=== PATIENT | male | born 1960 | race Caucasian/White ===

== ENCOUNTER 2018-09-06 13:30 | Inpatient (IN) | payer OTHER ==
[~2018-09-06 13:30] MED LIST: Aspirin Chewable 81 MG TAB ONE; Heparin 10,000 UNITS/ 10 ML VIAL ONE; Iopamidol 370 76% 100 ML VIAL ONE; Iopamidol 370 76% 50 ML VIAL FS ONE; Nitroglycerin 4.9 GM Bottle ONE
[2018-09-06 13:55] LABS: #Basophils 0.1 thou/uL (0.0-0.2); #Eosinphils 0.1 thou/uL (0.0-0.7); #Lymphocytes 2.3 thou/uL (1.20-3.40); #Monocytes 0.8 thou/uL (0.11-0.59); #Neutrophils 11.4 thou/uL (1.40-6.50); %Basophils 0.4 % (0.0-1.0); %Eosinophils 0.7 % (0.0-10.0); %Lymphocytes 15.9 % (21.0-51.0); %Monocytes 5.4 % (0.0-10.0); %Neutrophils 77.7 % (42.0-75.0); Hemoglobin 17.2 g/dL (14.0-18.0); Mean Corpuscular HGB CONC 32.9 g/dL (32.0-36.0); Mean Corpuscular Hemoglobin 30.5 pg (27.0-31.0); Mean Corpuscular Volume 92.7 fL (78.0-98.0); Mean Platelet Volume 7.2 fL (7.4-10.4); Platelet Count 252 thou/uL (130-400); RBC Distribution Width 12.4 % (11.5-14.5); Red Blood Cell (RBC) Count 5.64 mill/uL (4.70-6.10); White Blood Cell (WBC) Count 14.7 thou/uL (4.8-10.8)
--- NOTE | 2018-09-06 14:01 | RAD ---
EXAM: Portable chest PROVIDED CLINICAL HISTORY: Chest pain COMPARISON: None FINDINGS: Heart size appears prominent, which may be least partially on the basis of portable technique. No foc al consolidation, pleural fluid or pneumothorax evident. IMPRESSION: No evidence for an acute cardiopulmonary process.
[2018-09-06 14:04] LABS: INR-International Normal Ratio 0.9; Prothrombin Time 12.6 SEC (12.0-14.7)
[2018-09-06 14:06] LABS: PTT 22.6 SEC (22.9-36.1)
[2018-09-06 14:18] LABS: ALT (SGPT) 38 U/L (8-55); AST (SGOT) 40 U/L (5-34); Albumin 4.5 g/dL (3.5-5.0); Alkaline Phosphatase 78 U/L (40-150); Anion Gap 17 mmol/L (10-20); BUN (Urea Nitrogen) 21 mg/dL (8.4-25.7); CK (CPK) 51 U/L (30-200); Calc. Creatinine Clearance 0 mL/min (70-130); Calcium 9.6 mg/dL (7.8-10.44); Carbon Dioxide 21 mmol/L (22-29); Chloride 106 mmol/L (98-107); Estimated GFR-MDRD 57; Globulin 3.7 g/dL (2.4-3.5); Glucose 122 mg/dL (70-105); Lipase 22 U/L (8-78); Potassium 5.1 mmol/L (3.5-5.1); Protein, Total 8.2 g/dL (6.0-8.3); Sodium 139 mmol/L (136-145)
[2018-09-06] MEDS ORDERED: Atropine Sulfate 1 mg/10 ml Syringe ONE (14:30)
[2018-09-06] MEDS ORDERED: Heparin 10,000 UNITS/1 ML VIAL ONE (14:30)
[2018-09-06] MEDS ORDERED: Morphine 2 MG/ML SYRINGE ONE (14:32)
[2018-09-06 14:38] LABS: CKMB 2.6 ng/mL (0-6.6)
[2018-09-06] MEDS ORDERED: Nitroglycerin 100MG/250ML BOT 250 ML ONE (14:57)
[2018-09-06 15:47] VITALS: BMI 30.8
[2018-09-06] MEDS ORDERED: Heparin 25,000 units/D5W 500 ML IV SCH (16:30)
[2018-09-06] MEDS ORDERED: Heparin 10,000 UNITS/ 10 ML VIAL SLOW IVP SCH (16:30)
[2018-09-06] MEDS ORDERED: Morphine 4 MG/ML VIAL SLOW IVP PRN (18:13)
[2018-09-06] MEDS ORDERED: Zolpidem Tartrate 5 MG TAB PO PRN (18:13)
[2018-09-06] MEDS ORDERED: Acetaminophen/Codeine 30-300mg Tablet PO PRN ×2 (18:13)
[2018-09-06] MEDS ORDERED: Nitroglycerin 0.4 MG TAB (25 Tab Bottle) SL PRN (18:13)
[2018-09-06 18:23] LABS: PTT 128.2 SEC (22.9-36.1)
[2018-09-06] MEDS ORDERED: Morphine 2 MG/ML SYRINGE SLOW IVP PRN (18:30)
[2018-09-06 19:55] LABS: Troponin I 160.895 ng/mL (< 0.028)
[2018-09-06] MEDS: TICAGRELOR 90 MG TABLET PO SCH (20:47)
[2018-09-06] MEDS: Carvedilol 3.125 MG TAB PO SCH (20:47)
[2018-09-06] MEDS: Atorvastatin Calcium 40 MG TAB PO SCH (20:47)
--- NOTE | 2018-09-06 21:04 | HP ---
INDICATION FOR ADMISSION: A 57-year-old gentleman who suffered an acute anterior myocardial infarction. HISTORY OF PRESENT ILLNESS: This is a very pleasant gentleman who is actually from [place] was down here visiting his place in [place] and was working on the yard. Around noon time, he started having chest pain, heavy pressure with diaphoresis, shortness of breath and his pain was 8/10. His rode him to the emergency room. He at this time has been given aspirin, nitroglycerin and heparin. He continues to have EKG changes and chest pain. He has a history of hypertension, but no other risk factors for coronary artery disease. He has had no previous cardiac history that he is aware of. He had a stress test many years ago, but none recently. PAST MEDICAL HISTORY: Unremarkable except for right arm fracture as a child. SOCIAL HISTORY: He is . He has 3 children. No heart disease. He has no alcohol or tobacco abuse. He continues to work, mainly with doing computer work. FAMILY HISTORY: Noncontributory except that this father had carotid artery disease. ALLERGIES: NONE. PRESENT MEDICATIONS: None. REVIEW OF SYSTEMS: A 12-point review of systems completely unremarkable. There was no other history of present illness. PHYSICAL EXAMINATION: GENERAL: Reveals a well-developed, well-nourished, very pleasant gentleman. VITAL SIGNS: Blood pressure 144/96, heart rate is 65 and regular. HEENT: Shows the head to be normocephalic and atraumatic. CARDIOVASCULAR: Carotid pulses present. I did not hear any bruits. Cardiovascular exam reveals a regular rhythm at this time with no significant murmurs heaves, thrills, bruits or rubs. CHEST: Clear to auscultation. ABDOMEN: Obese with positive bowel sounds. No organomegaly or masses noted. Femoral pulses are present. EXTREMITIES: No clubbing, cyanosis, edema. Pedal pulses are present. NEUROLOGIC: The patient appears to be intact. SKIN: His skin is warm and dry at this time. LABORATORY DATA: EKG shows an acute anterior myocardial infarction. Laboratory data is still pending, but we will schedule the patient for emergent cardiac catheterization. I have explained to him the procedure, the risks to include bleeding, infection, possible myocardial infarction, CVA, renal insufficiency, allergic contrast reaction, and even the possibility of . He understands and agrees to proceed and plan for cardiac catheterization in an emergent basis in this otherwise healthy gentleman who has suffered an anterior myocardial infarction. Job ID: [id number]
[2018-09-07 03:39] LABS: #Eosinphils 0.1 thou/uL (0.0-0.7); #Lymphocytes 2.3 thou/uL (1.20-3.40); #Monocytes 0.9 thou/uL (0.11-0.59); #Neutrophils 10.4 thou/uL (1.40-6.50); %Basophils 0.2 % (0.0-1.0); %Eosinophils 0.5 % (0.0-10.0); %Lymphocytes 16.7 % (21.0-51.0); %Monocytes 6.7 % (0.0-10.0); %Neutrophils 75.9 % (42.0-75.0); Hemoglobin 15.4 g/dL (14.0-18.0); Mean Corpuscular HGB CONC 33.2 g/dL (32.0-36.0); Mean Corpuscular Hemoglobin 30.8 pg (27.0-31.0); Mean Corpuscular Volume 92.7 fL (78.0-98.0); Mean Platelet Volume 7.1 fL (7.4-10.4); Platelet Count 236 thou/uL (130-400); RBC Distribution Width 12.6 % (11.5-14.5); Red Blood Cell (RBC) Count 5.01 mill/uL (4.70-6.10); White Blood Cell (WBC) Count 13.8 thou/uL (4.8-10.8)
[2018-09-07 03:53] LABS: Anion Gap 12 mmol/L (10-20); BUN (Urea Nitrogen) 15 mg/dL (8.4-25.7); Calc. Creatinine Clearance 124 mL/min (70-130); Calcium 8.9 mg/dL (7.8-10.44); Carbon Dioxide 24 mmol/L (22-29); Cardiac Risk 3.3 (Less than 4.5); Chloride 105 mmol/L (98-107); Cholesterol 187 mg/dl (< 200 Desired); Estimated GFR-MDRD 80; Glucose 117 mg/dL (70-105); HDL Cholesterol 56 mg/dL (>60 Neg Risk); LDL Cholesterol, Calculated 105 mg/dL; Potassium 3.9 mmol/L (3.5-5.1); Sodium 137 mmol/L (136-145); Triglycerides 130 mg/dL (Less than 150)
[2018-09-07] MEDS: Carvedilol 3.125 MG TAB PO SCH ×2 (08:18→21:21)
[2018-09-07] MEDS: Aspirin Chewable 81 MG TAB PO SCH (08:18)
[2018-09-07] MEDS: Lisinopril 2.5 MG TAB PO SCH (08:18)
[2018-09-07] MEDS ORDERED: Lisinopril 2.5 MG TAB PO SCH (09:00)
[2018-09-07] MEDS: TICAGRELOR 90 MG TABLET PO SCH ×2 (10:52→21:22)
--- NOTE | 2018-09-07 11:20 | PDOC.CTH ---
Cardiology Progress Note - Subjective The pt seen and examined. No overnight events. No cardiac complaints. He still has A-line in Rt Fem with 2+ pulses to RLE. - Objective Vital Signs Temp Pulse Ox 09/07/18 09:00 98.0 F 09/07/18 08:00 98 09/07/18 04:00 98.0 F 09/07/18 00:00 98.6 F Weight 233 lb 14.567 oz 09/06/18 09/07/18 09/08/18 06:59 06:59 06:59 Intake Total 1415 240 Output Total 1600 0 Balance -185 240 - Physical Examination General/Neuro: alert & oriented x3 Neck: no JVD present Lungs: CTA Heart: RRR Abdomen: soft Extremities: other: (No edema; no hematoma or drainage to Rt fem) - Telemetry Telemetry Rhythm: SR - Labs Result Diagrams: 09/07/18 03:20 09/07/18 03:20 Troponin/CKMB CK-MB (CK-2) 2.6 ng/mL (0-6.6) 09/06/18 13:41 Troponin I 107.350 ng/mL (< 0.028) H* 09/07/18 00:00 - Assessment/Plan 1. S/o LHC with MARTA stent to LAD on 09/06/2018 - stable; Trop trend down. On Coreg 3.125mg 1/2 tab BID, Lisinopril 2.5mg qd, ASA 81mg qd, and Brilinta BID. \ MAR reviewed Pt. seen and eval. by me. He has no complaints. No chest pain. RRR. Chest clear. I agree witrh the A/P by the GRAPHITE GRINDER. Echo: mid-distal ant. wall akinesis,septal akinesis. apical akinesis. EF 30-35% . This may indicate myocardial stunning and hopefully the EF will improve. In the interim he qualifies for a Life-Vest on d/c. Repeat echo in 1 month is advisable. If no improvement in the EF in 45-90 days then an AICD would be advisable . gjm Review of Systems - Review of Systems Constitutional: reports: no symptoms reported EENTM: reports: no symptoms reported Respiratory: reports: no symptoms reported Cardiac (ROS): reports: no symptoms reported ABD/GI: reports: no symptoms reported : reports: no symptoms reported Musculoskeletal: reports: no symptoms reported Skin: reports: no symptoms reported
[2018-09-07] MEDS: Atorvastatin Calcium 40 MG TAB PO SCH (21:23)
[2018-09-08] MEDS: Carvedilol 3.125 MG TAB PO SCH ×2 (10:23→20:31)
[2018-09-08] MEDS: Aspirin Chewable 81 MG TAB PO SCH (10:27)
[2018-09-08] MEDS: Lisinopril 2.5 MG TAB PO SCH (10:27)
[2018-09-08] MEDS: TICAGRELOR 90 MG TABLET PO SCH ×2 (10:28→20:31)
--- NOTE | 2018-09-08 13:56 | PDOC.CTH ---
Cardiology Progress Note - Subjective The pt seen and examined. No overnight events. No cardiac complaints. - Objective Vital Signs Temp Pulse Resp BP BP Pulse Ox 09/08/18 10:27 76 112/79 09/08/18 08:00 97.4 F L 76 14 112/79 99 09/08/18 07:00 96 09/08/18 04:52 97.5 F L 76 12 105/67 100 Weight 222 lb 1 oz 09/07/18 09/08/18 09/09/18 06:59 06:59 06:59 Intake Total 1415 1200 Output Total 1600 300 Balance -185 900 - Physical Examination General/Neuro: alert & oriented x3 Neck: no JVD present Lungs: CTA Heart: RRR Abdomen: soft Extremities: other: (no edema) - Telemetry Telemetry Rhythm: SR - Labs Result Diagrams: 09/07/18 03:20 09/07/18 03:20 Troponin/CKMB CK-MB (CK-2) 2.6 ng/mL (0-6.6) 09/06/18 13:41 Troponin I 107.350 ng/mL (< 0.028) H* 09/07/18 00:00 - Assessment/Plan 1. S/o C with MARTA stent to LAD on 09/06/2018 - stable; Trop trend down. On Coreg 3.125mg 1/2 tab BID, Lisinopril 2.5mg qd, ASA 81mg qd, and Brilinta BID. Will d/c with LifeVest tomorrow. 2. Acute ischemic CMY with eF 30-35% - The pt will d/c with Kwadwo, BBlcoker, and LifeVest. MAR reviewed * Echo: mid-distal ant. wall akinesis,septal akinesis. apical akinesis. EF 30-35 %. Will order a Life-Vest on d/c. Repeat echo in 1 month is advisable. If no improvement in the EF in 45-90 days then an AICD would be advisable Pt. seen and eval. by me. He denies cardiac complaints. Hopefully the EF will improve. This could be myocardial stunning. I ewxplained to him that if it does not improve then he would be a candidate for an AICD in45-90 days post [place]. Chest clear. RRR. I agree with the A/P by the APPLICATION PROGRAMMER ANALYST.Home in AM if no events overnight. Review of Systems - Review of Systems Constitutional: reports: no symptoms reported EENTM: reports: no symptoms reported Respiratory: reports: no symptoms reported Cardiac (ROS): reports: no symptoms reported ABD/GI: reports: no symptoms reported : reports: no symptoms reported Musculoskeletal: reports: no symptoms reported
--- NOTE | 2018-09-08 15:03 | PQF ---
FEMI DELACRUZ G JEAN MD [id number] CLINICAL DOCUMENTATION IMPROVEMENT CLARIFICATION FORM: ICD-10 Updated PLEASE DO AN ADDENDUM TO THE PROGRESS NOTE WITH ANY DOCUMENTATION UPDATES OR ADDITIONS AND CARRY THROUGH TO DC SUMMARY. THANK YOU. DATE: 09/08/18 ATTN: Charla Ojeda FNP for Dr. Lazo Please exercise your independent, professional judgment in responding to the clarification form. Clinical indicators are provided on the bottom of this form for your review Please check appropriate box(s): HEART FAILURE: A. TYPE: [ x ] Systolic / HFrEF [ ] Combined Systolic / Diastolic B. ACUITY [ x ] Acute [ ] Other diagnosis [ ] Unable to determine In addition, please specify: Present on Admission (POA): [ ] Yes [ ] No [x ] Unable to determine For continuity of documentation, please document condition throughout progress notes and discharge summary. Thank You. CLINICAL INDICATORS - SIGNS / SYMPTOMS / LABS Ejection Fraction =30-35% per Echo may indicate myocardial stunning per 09/07 Card note RISKS: Anterior UT per H&P; s/p C with MARTA stent to LAD 09/06 procedure note TREATMENTS: Administration of GODWIN / BB--> 09/06 to date coreg; 09/07 to date lisinopril per MAR Cardiac monitoring / telemetry 09/06/18 to date per orders 09/08 orders for Life Vest (This form is maintained as a part of the permanent medical record) 2014 [employer], [place]. All Rights Reserved Camryn Thompson, RN, BSN, CCDS [email or web address] [phone] MTDD
[2018-09-08] MEDS: Atorvastatin Calcium 40 MG TAB PO SCH (20:32)
[2018-09-09] MEDS: Carvedilol 3.125 MG TAB PO SCH (08:56)
[2018-09-09] MEDS: Lisinopril 2.5 MG TAB PO SCH (08:59)
[2018-09-09] MEDS: TICAGRELOR 90 MG TABLET PO SCH (08:59)
[2018-09-09] MEDS: Aspirin Chewable 81 MG TAB PO SCH (08:59)
--- NOTE | 2018-09-09 09:31 | PDOC.CTH ---
Cardiology Progress Note - Subjective the pt seen and examined. No overnight events. No cardiac complaints. - Objective Vital Signs Temp Pulse Resp BP Pulse Ox 09/09/18 08:59 72 09/09/18 07:53 97.8 F 72 16 113/71 97 09/09/18 04:00 97.5 F L 70 16 101/70 94 L Weight 223 lb 1 oz 09/08/18 09/09/18 09/10/18 06:59 06:59 06:59 Intake Total 1200 1270 Output Total 300 Balance 900 1270 - Physical Examination General/Neuro: alert & oriented x3 Neck: no JVD present Lungs: CTA Heart: RRR Abdomen: soft Extremities: other: - Telemetry Telemetry Rhythm: SR - Labs Result Diagrams: 09/07/18 03:20 09/07/18 03:20 Troponin/CKMB CK-MB (CK-2) 2.6 ng/mL (0-6.6) 09/06/18 13:41 Troponin I 107.350 ng/mL (< 0.028) H* 09/07/18 00:00 - Assessment/Plan 1. S/o LHC with MARTA stent to LAD on 09/06/2018 - stable; Trop trend down. On Coreg 3.125mg 1/2 tab BID, Lisinopril 2.5mg qd, ASA 81mg qd, and Brilinta BID. Will d/c with LifeVest tomorrow. 2. Acute ischemic CMY with eF 30-35% - The pt will d/c with Kwadwo, BBlcoker, and LifeVest. MAR reviewed * Echo: mid-distal ant. wall akinesis,septal akinesis. apical akinesis. EF 30-35 %. Will order a Life-Vest on d/c. Repeat echo in 1 month is advisable. If no improvement in the EF in 45-90 days then an AICD would be advisable * From Cardiac standpoint, the pt is stable to d/c home. The pt will f/u with [facility] in [place], [place]. Review of Systems - Review of Systems Constitutional: reports: no symptoms reported EENTM: reports: no symptoms reported Respiratory: reports: no symptoms reported Cardiac (ROS): reports: no symptoms reported ABD/GI: reports: no symptoms reported : reports: no symptoms reported Musculoskeletal: reports: no symptoms reported Skin: reports: no symptoms reported
[2018-09-09 11:29] VITALS: BP 109/72; TEMP 97.9
== END 2018-09-09 13:15 | disposition home or self-care (01) | DRG 246 ==
LOC: ERS 13:30 → CCU 14:22 → 2NO 09-07 18:43
PROVIDERS: ADMIT Internal Medicine Cardiovascular Disease; ATTEND Internal Medicine Cardiovascular Disease
PROC: 027034Z Dilation of Coronary Artery, One Artery with Drug-eluting Intraluminal Device, Percutaneous Approach (ICD-10-PCS; principal; 2018-09-06)
PROC: 4A023N7 Measurement of Cardiac Sampling and Pressure, Left Heart, Percutaneous Approach (ICD-10-PCS; 2018-09-06)
PROC: B2111ZZ Fluoroscopy of Multiple Coronary Arteries using Low Osmolar Contrast (ICD-10-PCS; 2018-09-06)
PROC: B2151ZZ Fluoroscopy of Left Heart using Low Osmolar Contrast (ICD-10-PCS; 2018-09-06)
DX: I21.3 ST elevation (STEMI) myocardial infarction of unspecified site (principal); I50.21 Acute systolic (congestive) heart failure
CPT/HCPCS: 71045; 80048; 80053; 80061; 82550; 82553; 83690; 83880; 84484; 85025; 85347; 85610; 85730; 92933; 93005; 93010; 93306; 93458; 96374; 96375; C1725; C1769; C1874; C1887; C9602; J0461; J1644; J2270; Q9967

== ENCOUNTER 2020-01-28 08:58 | Outpatient (CLI) | payer OTHER ==
--- NOTE | 2020-01-28 09:34 | ULT ---
Sonogram right upper quadrant HISTORY: Hyperbilirubinemia. FINDINGS: Gallbladder has a normal appearance without stones. Common duct is 0.3 cm. Cyst in the right liver lobe measures up to 1.7 cm left liver lobe cyst measures up to 1.6 cm. No lauren id masses or intrahepatic biliary dilatation. No free fluid. Right kidney partially visualized with cortical cysts. IMPRESSION : No evidence of gallstones or biliary obstruction. No acute abnormalities. Incidental note of hepatic and right renal cysts.
== END 2020-01-28 08:59 | disposition home or self-care (01) ==
LOC: BICULT 08:58
PROVIDERS: ATTEND Family Medicine
DX: E80.6 Other disorders of bilirubin metabolism (principal); K76.89 Other specified diseases of liver; N28.1 Cyst of kidney, acquired
CPT/HCPCS: 76705

== ENCOUNTER 2024-03-16 11:22 | Outpatient (CLI) | payer MEDICARE, OTHER | END 2024-03-16 11:23 | disposition home or self-care (01) | LOC: SCSRAD 11:22 | PROVIDERS: ATTEND Family Medicine | DX: J94.2 Hemothorax (principal); R91.8 Other nonspecific abnormal finding of lung field | CPT/HCPCS: 71046 ==

== ENCOUNTER 2024-04-20 09:31 | Outpatient (CLI) | payer MEDICARE, OTHER | END 2024-04-20 09:32 | disposition home or self-care (01) | LOC: SCSRAD 09:31 | PROVIDERS: ATTEND Family Medicine | DX: S22.41XS Multiple fractures of ribs, right side, sequela (principal); R06.89 Other abnormalities of breathing; J94.8 Other specified pleural conditions | CPT/HCPCS: 71046 ==